=== PATIENT | male | born 1980 | race Caucasian/White ===

== ENCOUNTER 2019-08-04 12:29 | Emergency (ER) | payer OTHER ==
--- NOTE | 2019-08-04 12:42 | EDM.PDOC ---
ED HPI GENERAL MEDICAL PROBLEM - General Chief Complaint: Abdominal Pain Stated Complaint: BACK STOMACH PAIN Time Seen by Provider: 08/04/19 12:38 Source of Information: Reports: Patient History Limitations: Reports: No Limitations - History of Present Illness INITIAL COMMENTS - FREE TEXT/NARRATIVE: Patient is a 38-year-old male who is complaining of having right flank pain which started last night is much worse today. Pain radiates down to the patient 's right testicle. He is feeling nauseous and has vomited. He denies any diarrhea. He denies any hematemesis. He denies having any fever chills or any dysuria or hematuria. Patient has had similar symptoms in the past that were thought to be due to a kidney stone though he is never had a kidney stone found. Onset: Sudden Duration: Day(s): Location: Reports: Abdomen, Back Quality: Reports: Ache, Pressure Severity: Severe Improves with: Reports: None Worsens with: Reports: None Associated Symptoms: Reports: Diaphoresis, Nausea/Vomiting. Denies: Fever/ Chills, Loss of Appetite testicle Pain Score (Numeric/FACES): 6 - Related Data Allergies Allergy/AdvReac Type Severity Reaction Status Date / Time No Known Allergies Allergy Verified 08/04/19 12:38 Home Meds: Home Meds Esomeprazole Magnesium [Nexium] 08/04/19 [History] Hydrocodone/Acetaminophen [[place] 5-325 Tablet] 2 tab PO 08/04/19 [History] Levothyroxine [Synthroid] 08/04/19 [History] Sildenafil [Viagra] 30 mg PO 08/04/19 [History] ED ROS GENERAL - Review of Systems Review Of Systems: See Below Constitutional: Reports: No Symptoms Respiratory: Reports: No Symptoms Cardiovascular: Reports: No Symptoms Endocrine: Reports: No Symptoms GI/Abdominal: Reports: Abdominal Pain, Nausea, Vomiting. Denies: Black Stool, Bloody Stool, Distension : Reports: No Symptoms Musculoskeletal: Reports: No Symptoms Skin: Reports: No Symptoms Neurological: Reports: No Symptoms Psychiatric: Reports: No Symptoms ED EXAM, GI/ABD - Physical Exam Exam: See Below Exam Limited By: No Limitations General Appearance: Moderate Distress (Secondary to pain) Head: Atraumatic, Normocephalic Neck: Normal Inspection, Non-Tender Respiratory/Chest: No Respiratory Distress, Lungs Clear, Normal Breath Sounds Cardiovascular: Regular Rate, Rhythm, No JVD GI/Abdominal Exam: Normal Bowel Sounds, Non-Tender, No Organomegaly (Male) Exam: Normal Inspection. No: Scrotum Tenderness (R), Testicular Mass , Testicular Tenderness (L) Back Exam: Normal Inspection. No: CVA Tenderness (R) Extremities: Normal Inspection Neurological: Alert Psychiatric: Normal Affect Skin Exam: Warm, Dry Course - Vital Signs Last Recorded V/S: Last Vital Signs Temp 35.3 C 08/04/19 12:42 Pulse 69 08/04/19 15:56 Resp 18 08/04/19 15:56 BP 149/93 H 08/04/19 15:56 Pulse Ox 97 08/04/19 15:56 - Orders/Labs/Meds Orders: Active Orders 24 hr Category Date Time Status Sodium Chloride 0.9% [Normal Saline] 1,000 ml Med 08/04/19 15:41 Active IV .BOLUS Sodium Chloride 0.9% [Saline Flush] Med 08/04/19 12:55 Active 10 ml FLUSH ASDIRECTED PRN Sodium Chloride 0.9% [Saline Flush] Med 08/04/19 12:55 Active 2.5 ml FLUSH ASDIRECTED PRN Saline Lock Insert [OM.PC] Stat Oth 08/04/19 12:55 Ordered Medication Orders Sodium Chloride (Normal Saline) 1,000 mls @ 999 mls/hr IV .BOLUS ONE Stop: 08/04/19 16:41 Last Admin: 08/04/19 15:52 Dose: 999 mls/hr Sodium Chloride (Saline Flush) 10 ml FLUSH ASDIRECTED PRN PRN Reason: Keep Vein Open Last Admin: 08/04/19 13:11 Dose: 10 ml Sodium Chloride (Saline Flush) 2.5 ml FLUSH ASDIRECTED PRN PRN Reason: Keep Vein Open Last Admin: 08/04/19 13:11 Dose: 2.5 ml Labs: Laboratory Tests 08/04/19 08/04/19 08/04/19 Range/Units 13:07 13:07 14:18 WBC 5.58 (4.0-11.0) K/uL RBC 4.66 (4.50-5.90) M/uL Hgb 15.4 (13.0-17.0) g/dL Hct 43.8 (38.0-50.0) % MCV 94.0 (80.0-98.0) fL MCH 33.0 H (27.0-32.0) pg MCHC 35.2 (31.0-37.0) g/dL RDW Std Deviation 44.3 (28.0-62.0) fl RDW Coeff of Debra 13 (11.0-15.0) % Plt Count 213 (150-400) K/uL MPV 9.40 (7.40-12.00) fL Neut % (Auto) 53.5 (48.0-80.0) % Lymph % (Auto) 35.7 (16.0-40.0) % [place] % (Auto) 7.9 (0.0-15.0) % Eos % (Auto) 2.5 (0.0-7.0) % Baso % (Auto) 0.4 (0.0-1.5) % Neut # (Auto) 3.0 (1.4-5.7) K/uL Lymph # (Auto) 2.0 (0.6-2.4) K/uL [place] # (Auto) 0.4 (0.0-0.8) K/uL Eos # (Auto) 0.1 (0.0-0.7) K/uL Baso # (Auto) 0.0 (0.0-0.1) K/uL Nucleated RBC % 0.0 /100WBC Nucleated RBCs # 0 K/uL Sodium 140 (136-148) mmol/L Potassium 3.7 (3.5-5.1) mmol/L Chloride 103 (98-107) mmol/L Carbon Dioxide 26.2 (21.0-32.0) mmol/L BUN 16 (7.0-18.0) mg/dL Creatinine 1.0 (0.8-1.3) mg/dL Est Cr Clr Drug Dosing 109.93 mL/min Estimated GFR (MDRD) > 60.0 ml/min Glucose 127 H (74-106) mg/dL Calcium 9.0 (8.5-10.1) mg/dL Total Bilirubin 0.4 (0.2-1.0) mg/dL AST 23 (15-37) IU/L ALT 62 (14-63) IU/L Alkaline Phosphatase 44 L (46-116) U/L Total Protein 7.4 (6.4-8.2) g/dL Albumin 4.2 (3.4-5.0) g/dL Globulin 3.2 (2.6-4.0) g/dL Albumin/Globulin Ratio 1.3 (0.9-1.6) Lipase 172 (73-393) U/L Urine Color YELLOW Urine Appearance CLEAR Urine pH 8.0 (5.0-8.0) Ur Specific [place] 1.020 (1.001-1.035) Urine Protein 30 H (NEGATIVE) mg/dL Urine Glucose (UA) NEGATIVE (NEGATIVE) mg/dL Urine Ketones NEGATIVE (NEGATIVE) mg/dL Urine Occult Blood LARGE H (NEGATIVE) Urine Nitrite NEGATIVE (NEGATIVE) Urine Bilirubin NEGATIVE (NEGATIVE) Urine Urobilinogen 0.2 (<2.0) EU/dL Ur Leukocyte Esterase NEGATIVE (NEGATIVE) Urine RBC 4-6 (0-2/HPF) Urine WBC 0-1 (0-5/HPF) Ur Epithelial Cells RARE (NONE-FEW) Amorphous Sediment LIGHT (NEGATIVE) Urine Bacteria RARE (NEGATIVE) Meds: Medications Generic Name Dose Route Start Last Admin Trade Name Freq PRN Reason Stop Dose Admin Sodium Chloride 1,000 mls @ 999 mls/hr 08/04/19 15:41 08/04/19 15:52 Normal Saline IV 08/04/19 16:41 999 mls/hr .BOLUS ONE Administration Sodium Chloride 10 ml 08/04/19 12:55 08/04/19 13:11 Saline Flush FLUSH 10 ml ASDIRECTED PRN Administration Keep Vein Open Sodium Chloride 2.5 ml 08/04/19 12:55 08/04/19 13:11 Saline Flush FLUSH 2.5 ml ASDIRECTED PRN Administration Keep Vein Open Discontinued Medications Generic Name Dose Route Start Last Admin Trade Name Freq PRN Reason Stop Dose Admin Hydromorphone HCl 1 mg 08/04/19 13:40 08/04/19 13:48 Dilaudid IVPUSH 08/04/19 13:41 1 mg ONETIME ONE Administration Hydromorphone HCl 1 mg 08/04/19 14:06 08/04/19 14:22 Dilaudid IVPUSH 08/04/19 14:07 Not Given ONETIME ONE Hydromorphone HCl 1 mg 08/04/19 14:41 08/04/19 15:08 Dilaudid IVPUSH 08/04/19 14:42 1 mg ONETIME ONE Administration Hydromorphone HCl 1 mg 08/04/19 15:41 08/04/19 15:53 Dilaudid IVPUSH 08/04/19 15:42 1 mg ONETIME ONE Administration Sodium Chloride 1,000 mls @ 999 mls/hr 08/04/19 12:55 08/04/19 13:09 Normal Saline IV 08/04/19 13:55 999 mls/hr BOLUS ONE Administration Sodium Chloride 1,000 mls @ 999 mls/hr 08/04/19 14:24 08/04/19 14:28 Normal Saline IV 08/04/19 15:24 999 mls/hr .Bolus ONE Administration Ketorolac Tromethamine 30 mg 08/04/19 12:55 08/04/19 13:11 Toradol IVPUSH 08/04/19 12:56 30 mg ONETIME ONE Administration Morphine Sulfate 4 mg 08/04/19 14:18 08/04/19 14:29 Morphine IVPUSH 08/04/19 14:19 4 mg ONETIME ONE Administration Ondansetron HCl 4 mg 08/04/19 12:55 08/04/19 13:10 Zofran IVPUSH 08/04/19 12:56 4 mg ONETIME ONE Administration - Re-Assessments/Exams Free Text/Narrative Re-Assessment/Exam: 08/04/19 14:53 Patient's urine shows large amount of blood. CT scan shows him to have a 4 mm stone at the right UVJ with moderate hydro-. Patient has been given multiple doses of ptotic and IV fluids attempt to make him feel better. Departure - Departure Time of Disposition: 16:15 Disposition: Home, Self-Care 01 Condition: Good Clinical Impression: Renal colic on right side - Discharge Information Instructions: Renal Colic, [id number] Referrals: PCP,None [Primary Care Provider] - Forms: ED Department Discharge Additional Instructions: Keep urine clear by drinking 1 cup of water an hour until the urine is clear for the next 3 weeks. Drain urine and save any stone for follow-up with urologist. Naprosyn with meals. To ER if having fever chills vomiting or worse pain. Care Plan Goals: The following information is given to patients seen in the emergency department who are being discharged to home. This information is to outline your options for follow-up care. We provide all patients seen in our emergency department with a follow-up referral. The need for follow-up, as well as the timing and circumstances, are variable depending upon the specifics of your emergency department visit. If you don't have a primary care physician on staff, we will provide you with a referral. We always advise you to contact your personal physician following an emergency department visit to inform them of the circumstance of the visit and for follow-up with them and/or the need for any referrals to a consulting specialist. The emergency department will also refer you to a specialist when appropriate. This referral assures that you have the opportunity for follow-up care with a specialist. All of these measure are taken in an effort to provide you with optimal care, which includes your follow-up. Under all circumstances we always encourage you to contact your private physician who remains a resource for coordinating your care. When calling for follow-up care, please make the office aware that this follow-up is from your recent emergency room visit. If for any reason you are refused follow-up, please contact the [facility] Emergency Department at and asked to speak to the emergency department charge nurse. Sepsis Event Note - Focused Exam Vital Signs: Vital Signs Temp Pulse Resp BP Pulse Ox 08/04/19 15:56 69 18 149/93 H 97 08/04/19 14:30 60 18 138/90 96 08/04/19 12:42 35.3 C 59 L 22 H 163/99 H 99 Date Exam was Performed: 08/04/19 Time Exam was Performed: 16:15 - My Orders Last 24 Hours: My Active Orders 08/04/19 12:55 Sodium Chloride 0.9% [Saline Flush] 10 ml FLUSH ASDIRECTED PRN Sodium Chloride 0.9% [Saline Flush] 2.5 ml FLUSH ASDIRECTED PRN Saline Lock Insert [OM.PC] Stat 08/04/19 15:41 Sodium Chloride 0.9% [Normal Saline] 1,000 ml IV .BOLUS - Assessment/Plan Last 24 Hours: My Active Orders 08/04/19 12:55 Sodium Chloride 0.9% [Saline Flush] 10 ml FLUSH ASDIRECTED PRN Sodium Chloride 0.9% [Saline Flush] 2.5 ml FLUSH ASDIRECTED PRN Saline Lock Insert [OM.PC] Stat 08/04/19 15:41 Sodium Chloride 0.9% [Normal Saline] 1,000 ml IV .BOLUS
[2019-08-04] MEDS ORDERED: Ketorolac 30 MG/ML SDV IVPUSH ONE (12:55)
[2019-08-04] MEDS ORDERED: Sodium Chloride 0.9% 1,000 ML IV ONE ×3 (12:55→15:41)
[2019-08-04] MEDS ORDERED: Sodium Chloride 0.9% 2.5 ML Syringe FLUSH PRN (12:55)
[2019-08-04] MEDS ORDERED: Sodium Chloride 0.9% 10 ML Syringe FLUSH PRN (12:55)
[2019-08-04] MEDS ORDERED: Ondansetron 4 MG/2 ML SDV IVPUSH ONE (12:55)
[2019-08-04] MEDS ORDERED: HYDROmorphone 1 MG/ML Syringe IVPUSH ONE (13:40)
[2019-08-04 13:44] LABS: BLOOD UREA NITROGEN,BUN 16 mg/dL (7.0-18.0); CARBON DIOXIDE,CO2 26.2 mmol/L (21.0-32.0); CHLORIDE,CL 103 mmol/L (98-107); GLUCOSE RANDOM 127 mg/dL (74-106); LIPASE 172 U/L (73-393); POTASSIUM,K 3.7 mmol/L (3.5-5.1); SODIUM,NA 140 mmol/L (136-148)
[2019-08-04] MEDS ORDERED: HYDROmorphone 2 MG/ML Syringe IVPUSH ONE ×3 (14:06→15:41)
--- NOTE | 2019-08-04 14:12 | CT ---
CT abdomen and pelvis Technique: Multiple axial sections were obtained from above the dome of the diaphragm inferiorly through the pubic symphysis. Intravenous and oral contrast was not utilized. Comparison: No prior abdominal imaging. Findings: Cortical calcification is seen within is the right kidney. Several minimal nonobstructing calculi are noted within both kidneys. Small obstructing stone noted within the distal right ureter at the UVJ measuring 4 mm. This causes mild proximal hydronephrosis. Left ureter shows no dilatation or abnormal calcifications. Other findings: Visualized lung bases show nothing acute. Noncontrast appearance of the liver and spleen shows no discrete abnormality. Adrenal glands show no nodule. Pancreas is within normal limits. Gallbladder contains no calcified gallstones. Pancreas is within normal limits. Aorta shows no aneurysm. No retroperitoneal adenopathy or mesenteric abnormalities are seen. Fat-containing umbilical hernia is noted. No pelvic mass or adenopathy is seen. No free fluid is identified. Several surgical clips are seen adjacent to the cecum. Appendix not visualized with certainty. Bone window settings were reviewed which show nothing acute. Impression: 1. 4 mm obstructing stone within the distal right ureter at the UVJ. This stone causes mild proximal hydronephrosis. 2. Cortical calcification within the right kidney as well as several small nonobstructing calculi within both kidneys. 3. No other acute finding is seen on noncontrast CT study of the abdomen and pelvis. Diagnostic code #3 This report was dictated in [place] Standard Time
[2019-08-04] MEDS ORDERED: Morphine 4 MG/ML Syringe IVPUSH ONE (14:18)
== END 2019-08-04 16:51 | disposition home or self-care (01) ==
LOC: MW.ED 12:29
DX: N13.2 Hydronephrosis with renal and ureteral calculous obstruction (principal)
CPT/HCPCS: 36415; 74176; 80053; 81001; 83690; 85025; 96361; 96374; 96375; 96376; 99284; J1170; J1885; J2270; J2405; J7030

== ENCOUNTER 2019-08-07 12:03 | Emergency (ER) | payer OTHER ==
[2019-08-07] MEDS: Sodium Chloride 0.9% 1,000 ML IV ONE (13:20)
[2019-08-07] MEDS: Ondansetron 4 MG/2 ML SDV IVPUSH ONE (13:20)
[2019-08-07] MEDS: Ketorolac 30 MG/ML SDV IVPUSH ONE (13:21)
[2019-08-07 13:46] LABS: BLOOD UREA NITROGEN,BUN 18 mg/dL (7.0-18.0); CARBON DIOXIDE,CO2 25.4 mmol/L (21.0-32.0); CHLORIDE,CL 99 mmol/L (98-107); GLUCOSE RANDOM 112 mg/dL (74-106); POTASSIUM,K 4.2 mmol/L (3.5-5.1); SODIUM,NA 134 mmol/L (136-148)
--- NOTE | 2019-08-07 14:26 | CR ---
Abdomen: Supine view of the abdomen was obtained. Comparison: Previous CT abdomen and pelvis study of 08/04/19. Diffuse gas within the colon is seen which does not appear obstructive but could represent slight ileus. Surgical clips are seen within the right side of the abdomen. No soft tissue abnormality is seen. Calcifications are identified within the pelvis which most likely represent phleboliths. No additional abnormality is noted. Impression: 1. Diffuse gas within the colon which does not appear to be obstructive and may represent mild colonic ileus. 2. Other findings believed to be incidental as noted above. Diagnostic code #2 This report was dictated in [place] Standard Time
--- NOTE | 2019-08-07 14:43 | EDM.PDOC ---
ED HPI GENERAL MEDICAL PROBLEM - General Chief Complaint: Genitourinary Problem Stated Complaint: possible kidney stone Time Seen by Provider: 08/07/19 12:16 - History of Present Illness INITIAL COMMENTS - FREE TEXT/NARRATIVE: HPI 38-year-old male presents with ongoing right flank pain after being diagnosed on 08/04 with a 4 mm right UVJ stone and started on Flowmax, Percocet, and ibuprofen, denies fevers, chills, or painful urination. Patient compliant with medications. Denies passage of stone. ROS with no recent constitutional symptoms. Exam HR 90, RR 18, BP 147/90, T 36.6C, SaO2 98% on room air. Gen: Pleasant, non-toxic appearing, resting comfortably HEENT: NC, AT, PEERL, EOMI. Resp: Clear to auscultation bilaterally. Unlabored respirations with a normal work of breathing. Card: Regular rate and rhythm. Extremities warm and well perfused. GI: nontender to palpation throughout quadrants, no rebound, guarding. : no left CVA tenderness to percussion, right CVA tenderness percussion. MSK: No visible deformities, strength and tone without visually appreciable deficit. Neuro: alert and oriented 3, no facial asymmetry, vision and hearing WNL. Heme/Lymph: Deferred Skin: Normal color with no visible lesions (other than noted above). Psych: Mood and affect appropriate. Labs/imaging: CT Abd/pelvis (08/04/19): 4 mm obstruction stone within the distal right ureter at the UVJ. This stone causes mild proximal hydronephrosis. WBC 9.28, HB 15.7, sodium 134, potassium 4.2, creatinine 1.2 (08/04 was 1.0). UA trace blood, small bilirubin, negative nitrate, negative leukocyte esterase , no WBCs, rare epithelial cells, rare bacteria. XR Abdomen: diffuse gas within the colon which does not appear to be obstructive and may represent mild clonic ileus. MDM Previous chart, nursing note, and vitals reviewed. A: 38-year-old male presents with ongoing right flank pain after being diagnosed on 08/04 with a 4 mm right UVJ stone and started on Flowmax, Percocet , and ibuprofen, denies fevers, chills, or painful urination. DDx & Evaluation: patient with ongoing right flank pain, no clear evidence of pathology beyond his known for millimeter right UVJ stone, repeat plain film the abdomen does not demonstrate stone, however this does not definitively excluded. Ongoing CVA tenderness, ongoing trace hematuria, and mild creatinine increased are consistent with ongoing obstruction. UA without evidence infection , no further features suggestive of infection/sepsis. ED course: * 30 mg Toradol, 4 mg Zofran, and 1 L NS given. * 14:36 Dr. Farrell. Discuss case with neurologist on-call, recommended transfer to his clinic for evaluation by urology. Transfer to clinic is appropriate, while the patient does have a ongoing painful condition, there are no unstable features to his presentation that will require immediate hospitalization, as such the patient does not require admission at the present time. Impression: ureterolithiasis. Right Flank Pain Score (Numeric/FACES): 8 - Related Data Allergies Allergy/AdvReac Type Severity Reaction Status Date / Time No Known Allergies Allergy Verified 08/04/19 12:38 Home Meds: Home Meds Esomeprazole Magnesium [Nexium] 08/04/19 [History] Hydrocodone/Acetaminophen [[place] 5-325 Tablet] 2 tab PO 08/04/19 [History] Levothyroxine [Synthroid] 08/04/19 [History] Ondansetron [Zofran ODT] 4 mg PO Q6H PRN #10 tab.dis 08/04/19 [Rx] Promethazine [Phenergan] 25 mg PO Q8H PRN #10 tab 08/04/19 [Rx] Sildenafil [Viagra] 30 mg PO 08/04/19 [History] Tamsulosin HCl [Flomax] 0.4 mg PO DAILY #20 cap.er.24h 08/04/19 [Rx] oxyCODONE HCl/Acetaminophen [Percocet 5-325 mg Tablet] 1 each PO QID PRN #20 tablet 08/04/19 [Rx] Past Medical History Genitourinary History: Reports: Renal Calculus - Infectious Disease History Infectious Disease History: Reports: Chicken Pox Social & Family History - Family History Family Medical History: Noncontributory - Tobacco Use Smoking Status *Q: Never Smoker Second Hand Smoke Exposure: No - Caffeine Use Caffeine Use: Reports: Coffee - Recreational Drug Use Recreational Drug Use: Yes Drug Use in Last 12 Months: Yes Recreational Drug Type: Reports: Marijuana/Hashish Recreational Drug Use Frequency: Daily ED ROS GENERAL - Review of Systems Review Of Systems: See Below ED EXAM, GENERAL - Physical Exam Exam: See Below Course - Vital Signs Last Recorded V/S: Last Vital Signs Temp 36.6 C 08/07/19 12:43 Pulse 90 08/07/19 14:00 Resp 18 08/07/19 14:00 BP 147/90 H 08/07/19 14:00 Pulse Ox 98 08/07/19 14:00 - Orders/Labs/Meds Labs: Laboratory Tests 08/07/19 08/07/19 08/07/19 Range/Units 13:15 13:15 13:16 WBC 9.28 (4.0-11.0) K/uL RBC 4.73 (4.50-5.90) M/uL Hgb 15.7 (13.0-17.0) g/dL Hct 44.5 (38.0-50.0) % MCV 94.1 (80.0-98.0) fL MCH 33.2 H (27.0-32.0) pg MCHC 35.3 (31.0-37.0) g/dL RDW Std Deviation 43.5 (28.0-62.0) fl RDW Coeff of Debra 13 (11.0-15.0) % Plt Count 193 (150-400) K/uL MPV 9.70 (7.40-12.00) fL Neut % (Auto) 76.8 (48.0-80.0) % Lymph % (Auto) 10.2 L (16.0-40.0) % [place] % (Auto) 11.9 (0.0-15.0) % Eos % (Auto) 0.9 (0.0-7.0) % Baso % (Auto) 0.2 (0.0-1.5) % Neut # (Auto) 7.1 H (1.4-5.7) K/uL Lymph # (Auto) 1.0 (0.6-2.4) K/uL [place] # (Auto) 1.1 H (0.0-0.8) K/uL Eos # (Auto) 0.1 (0.0-0.7) K/uL Baso # (Auto) 0.0 (0.0-0.1) K/uL Nucleated RBC % 0.0 /100WBC Nucleated RBCs # 0 K/uL Sodium 134 L (136-148) mmol/L Potassium 4.2 (3.5-5.1) mmol/L Chloride 99 (98-107) mmol/L Carbon Dioxide 25.4 (21.0-32.0) mmol/L BUN 18 (7.0-18.0) mg/dL Creatinine 1.2 (0.8-1.3) mg/dL Est Cr Clr Drug Dosing 91.61 mL/min Estimated GFR (MDRD) > 60.0 ml/min Glucose 112 H (74-106) mg/dL Calcium 9.1 (8.5-10.1) mg/dL Total Bilirubin 1.3 H (0.2-1.0) mg/dL AST 33 (15-37) IU/L ALT 44 (14-63) IU/L Alkaline Phosphatase 45 L (46-116) U/L Total Protein 7.8 (6.4-8.2) g/dL Albumin 3.5 (3.4-5.0) g/dL Globulin 4.3 H (2.6-4.0) g/dL Albumin/Globulin Ratio 0.8 L (0.9-1.6) Urine Color YELLOW Urine Appearance CLEAR Urine pH 6.0 (5.0-8.0) Ur Specific [place] 1.025 (1.001-1.035) Urine Protein 30 H (NEGATIVE) mg/dL Urine Glucose (UA) NEGATIVE (NEGATIVE) mg/dL Urine Ketones >=80 (NEGATIVE) mg/dL Urine Occult Blood TRACE-INTACT H (NEGATIVE) Urine Nitrite NEGATIVE (NEGATIVE) Urine Bilirubin SMALL H (NEGATIVE) Urine Ictotest POSITIVE Urine Urobilinogen 0.2 (<2.0) EU/dL Ur Leukocyte Esterase NEGATIVE (NEGATIVE) Urine RBC 0-2 (0-2/HPF) Urine WBC NONE SEEN (0-5/HPF) Ur Epithelial Cells RARE (NONE-FEW) Urine Bacteria RARE (NEGATIVE) Meds: Medications Discontinued Medications Generic Name Dose Route Start Last Admin Trade Name Freq PRN Reason Stop Dose Admin Sodium Chloride 1,000 mls @ 999 mls/hr 08/07/19 12:50 08/07/19 13:20 Normal Saline IV 08/07/19 13:50 999 mls/hr STAT ONE Administration Ketorolac Tromethamine 30 mg 08/07/19 12:53 08/07/19 13:21 Toradol IVPUSH 08/07/19 12:54 30 mg ONETIME ONE Administration Ondansetron HCl 4 mg 08/07/19 12:53 08/07/19 13:20 Zofran IVPUSH 08/07/19 12:54 4 mg ONETIME ONE Administration Departure - Departure Time of Disposition: 14:43 Disposition: DC/Tfer to Other 70 Clinical Impression: Kidney stone - Discharge Information Referrals: PCP,None [Primary Care Provider] - Additional Instructions: You were in seen in the [facility] Emergency Department for evaluation of kidney stone pain. Please proceed directly to [facility] ([address] [place] [id number], ) for further care. On arrival please notify the lockstitch front edge tape sewer that Dr. Farrell requested you proceed directly from the emergency department to his clinic for further care. Please read and follow all of the instructions below. Please follow up with your primary care physician as needed. When calling for follow-up care, please make the office aware that this follow-up is from your recent emergency room visit. If for any reason you are refused follow-up, please contact the [facility] Emergency Department at and asked to speak to the emergency department charge nurse. Your care today was limited to identifying and treating emergent medical problems only. Many people have subtle differences in their test results that require follow up with their outpatient physician(s) to correctly determine if this represents a normal variation or concerning abnormality with respect to your specific health. The care given to you today was limited to identifying and treating emergent medical problems - you need to request a copy of all of your medical records from today's visit and follow up with your outpatient physician(s) to review both today's visit and your overall health. If you have any new symptoms or if you are at all concerned about your health please return immediately to the emergency department. Prescriptions: If you are uninsured or have financial difficulties with filling your prescription(s), you may consider using a free pharmacy discount service such as [employer] ([employer]) or [employer] ([employer]). These services allow you to search for a medication on your phone (or computer) and obtain a coupon that usually has a significant discount from the list stallworth at a pharmacy. Your physician as well as [facility] does not have a financial relationship with either of these services. You may also wish to speak with your physician to determine if lower cost prescriptions are possible. Obtaining primary care: 1. [facility] provides pediatrics (children), family medicine (children, adults, and some obstetrical care), and internal medicine (adults). Further specialty care is also available. Same day appointments are available. They may be contacted at [phone] and are open Wednesday through Wednesday 8 AM to [address] [facility] are located at [facility], [address] [place] [address]. 2. [facility] offers family medicine, internal medicine, women health, and further specialty care. [facility] may be contacted at [phone]. [facility] is located at [address] [facility] [address]. 3. If you have health insurance, please also contact your insurer for a list of accepting providers under your policy, you may contact these providers for further health care. Occupational health: Work related injuries may consider following up with [facility], . Occupational health services are located at [address] [place] [address] and are open Wednesday through Wednesday from 7: 30 am to 5:00 pm. Obstetrical and Gynecological Care: [facility], , Wednesday through Wednesday 8 AM to 5 PM. [address] [address]. Eyecare: If you have an eye injury you should follow up with your marketing producer or with [facility], at [phone] or [phone] , they are located at [address] [place] [address]. Sepsis Event Note - Evaluation Sepsis Screening Result: No Definite Risk - Focused Exam Vital Signs: Vital Signs Temp Pulse Resp BP Pulse Ox 08/07/19 14:00 90 18 147/90 H 98 08/07/19 12:43 36.6 C 115 H 18 162/99 H 97 Date Exam was Performed: 08/07/19 Time Exam was Performed: 14:42
== END 2019-08-07 14:59 | disposition other institution (70) ==
LOC: MW.ED 12:03
DX: N20.0 Calculus of kidney (principal); Z79.899 Other long term (current) drug therapy
CPT/HCPCS: 36415; 74018; 80053; 81001; 85025; 96361; 96374; 96375; 99284; J1885; J2405; J7030